=== PATIENT | female | born 1995 | race Caucasian/White ===

== ENCOUNTER 2016-08-27 11:36 | Emergency (ER) | payer MEDICAID ==
[~2016-08-27] VITALS: Ht 160 cm; Wt 50.0 kg
[2016-08-27] MEDS ORDERED: KETOROLAC 60MG/2ML VIAL IM ONE (12:00)
[2016-08-27] MEDS ORDERED: PREDNISONE 20MG TABLET PO ONE (12:15)
[2016-08-27 12:19] VITALS: BP 105/75
== END 2016-08-27 12:32 | disposition home or self-care (01) ==
LOC: ER 12:14
DX: R07.0 Pain in throat (principal)
CPT/HCPCS: 81025; 96372; 99283; J1885; J7512

== ENCOUNTER 2017-01-18 15:29 | Emergency (ER) | payer MEDICAID ==
[~2017-01-18] VITALS: Ht 154.9 cm; Wt 53.0 kg
[2017-01-18] MEDS ORDERED: ACETAMINOPHEN 650MG/20.3ML UDC PO ONE (16:15)
[2017-01-18 18:52] VITALS: BP 110/73
== END 2017-01-18 18:52 | disposition home or self-care (01) ==
LOC: ER 17:55
DX: J02.9 Acute pharyngitis, unspecified (principal)
CPT/HCPCS: 99283

== ENCOUNTER 2018-02-23 05:27 | Observation (INO) | payer MEDICAID ==
[~2018-02-23] VITALS: Ht 157.5 cm; Wt 54.9 kg
[2018-02-23] MEDS ORDERED: FOLI0.4T2 MT (06:03)
[2018-02-23] MEDS ORDERED: PREN1TAB78 MT (06:03)
[2018-02-23] MEDS ORDERED: LACTATED RINGERS 1,000 ML IV SCH (06:45)
[2018-02-23] MEDS ORDERED: ONDANSETRON HCL 4MG/2ML INJ IV ONE (06:45)
[2018-02-23 08:14] LABS: CHLORIDE 109 mEq/L (98-107)
[2018-02-23 08:18] LABS: HEMATOCRIT. 34.3 % (36.0-48.0); HEMOGLOBIN. 11.7 g/dL (12.0-16.0); MEAN CORPUSCULAR VOLUME 90.7 fL (81.0-99.0); MEAN PLATELET VOLUME 8.9 fl (7.4-10.4); PLATELET 272 x1000/uL (130-400); RED BLOOD CELL COUNT 3.78 mill/uL (4.2-5.4); RED CELL DISTRIBUTION WIDTH 13.3 % (11.6-14.6)
[2018-02-23 08:32] LABS: CLARITY URINE CLOUDY (CLEAR); COLOR URINE DARK YELLOW (YELLOW); KETONES URINE TRACE (NEGATIVE); LEUKOCYTE ESTERASE URINE 2+ (NEGATIVE); NITRITE URINE NEGATIVE (NEGATIVE); OCCULT BLOOD URINE NEGATIVE (NEGATIVE); PROTEIN URINE NEGATIVE (NEGATIVE); SPECIFIC GRAVITY URINE 1.023 (1.005-1.030); UROBILINOGEN URINE 0.2 E.U./dL (0.2-1.0)
[2018-02-23 09:06] LABS: PLATELET ESTIMATE NORMAL
== END 2018-02-23 09:40 | disposition home or self-care (01) ==
LOC: 8 EST LDRP 05:27
PROVIDERS: ADMIT Obstetrics & Gynecology; ATTEND Obstetrics & Gynecology
DX: O21.2 Late vomiting of pregnancy (principal); O26.892 Other specified pregnancy related conditions, second trimester; R19.7 Diarrhea, unspecified; R42 Dizziness and giddiness; R10.13 Epigastric pain; Z3A.26 26 weeks gestation of pregnancy
CPT/HCPCS: 36415; 80053; 81003; 85025; 87086; 96361; 96374; 99281; G0378; J2405; 96360; J7120

== ENCOUNTER 2018-05-07 03:24 | Emergency (ER) | payer MEDICAID ==
[~2018-05-07] VITALS: Ht 160 cm; Wt 63.0 kg
[~2018-05-07 03:24] MED LIST: FOLI0.4T2 MT; PREN1TAB78 MT
[2018-05-07 03:33] VITALS: BP 134/80
== END 2018-05-07 10:48 | disposition left against medical advice (07) ==
LOC: ER 03:24
DX: Z53.21 Procedure and treatment not carried out due to patient leaving prior to being seen by health care provider (principal)

== ENCOUNTER 2018-05-07 15:15 | Observation (INO) | payer MEDICAID ==
[~2018-05-07] VITALS: Ht 160 cm; Wt 63.5 kg
[2018-05-07 16:34] LABS: HEMATOCRIT 29.9 % (36.0-48.0); HEMOGLOBIN 10.2 g/dL (12.0-16.0); MEAN CORPUSCULAR VOLUME 88.3 fL (81.0-99.0); PLATELET 213 x1000/uL (130-400); RED BLOOD CELL COUNT 3.39 mill/uL (4.2-5.4); RED CELL DISTRIBUTION WIDTH 13.1 % (11.6-14.6)
[2018-05-07 16:37] LABS: CLARITY URINE CLOUDY (CLEAR); COLOR URINE YELLOW (YELLOW); KETONES URINE NEGATIVE (NEGATIVE); LEUKOCYTE ESTERASE URINE 3+ (NEGATIVE); NITRITE URINE NEGATIVE (NEGATIVE); OCCULT BLOOD URINE NEGATIVE (NEGATIVE); PROTEIN URINE NEGATIVE (NEGATIVE); SPECIFIC GRAVITY URINE 1.019 (1.005-1.030)
[2018-05-07 17:09] LABS: HEPATITIS B SURFACE ANTIGEN NEGATIVE
[2018-05-07 17:39] LABS: HEPATITIS A AB IGM NEGATIVE (NEGATIVE)
== END 2018-05-07 18:45 | disposition home or self-care (01) ==
LOC: 8 EST LDRP 15:15
PROVIDERS: ADMIT Specialist; ATTEND Specialist
DX: O26.893 Other specified pregnancy related conditions, third trimester (principal); L29.9 Pruritus, unspecified; Z3A.36 36 weeks gestation of pregnancy
CPT/HCPCS: 36415; 76815; 76818; 80076; 81003; 82239; 85027; 99281; G0378; 86705; 86709; 86803; 87340

== ENCOUNTER 2018-05-13 08:54 | Observation (INO) | payer MEDICAID ==
[~2018-05-13] VITALS: Ht 157.5 cm; Wt 82.6 kg
[2018-05-13] MEDS: URSODIOL 300MG CAPSULE PO SCH ×2 (14:22→22:27)
[2018-05-13 19:19] LABS: BASOPHILS % 0.4 % (0.0-2.0); EOSINOPHILS % 0.3 % (0.0-5.0); HEMATOCRIT. 32.8 % (36.0-48.0); LYMPHOCYTES % 32.7 % (20.0-50.0); MEAN CORPUSCULAR VOLUME 89.5 fL (81.0-99.0); MEAN PLATELET VOLUME 10.8 fl (7.4-10.4); MONOCYTES % 6.1 % (2.0-8.0); NEUTROPHILS % 60.5 % (40.0-76.0); PLATELET 200 x1000/uL (130-400); RED BLOOD CELL COUNT 3.66 mill/uL (4.2-5.4); RED CELL DISTRIBUTION WIDTH 13.7 % (11.6-14.6)
[2018-05-13] MEDS ORDERED: ACYC200C PO (19:20)
[2018-05-13 19:35] LABS: D-DIMER 1.2 mg/L FEU (<0.50); INR 0.9; PARTIAL THROMBOPLASTIN TIME 28.2 sec (23.4-31.0)
[2018-05-13 19:40] LABS: CHLORIDE 108 mEq/L (98-107)
[2018-05-13 19:42] LABS: PROTHROMBIN TIME 8.9 sec (9.1-11.1)
[2018-05-13 20:32] LABS: HEPATITIS B SURFACE ANTIGEN NEGATIVE
[2018-05-13 23:55] LABS: CLARITY URINE TURBID (CLEAR); COLOR URINE YELLOW (YELLOW); KETONES URINE NEGATIVE (NEGATIVE); LEUKOCYTE ESTERASE URINE 3+ (NEGATIVE); NITRITE URINE NEGATIVE (NEGATIVE); OCCULT BLOOD URINE TRACE (NEGATIVE); PH URINE 5.5 (4.5-8.0); PROTEIN URINE NEGATIVE (NEGATIVE)
[2018-05-14 00:36] LABS: *AMPHETAMINES SCREEN URINE NEGATIVE (NEGATIVE); *BARBITURATES SCREEN URINE NEGATIVE (NEGATIVE); *BENZODIAZEPINES SCREEN URINE NEGATIVE (NEGATIVE); *COCAINE SCREEN URINE NEGATIVE (NEGATIVE); METHADONE URINE SCREEN NEGATIVE (NEGATIVE)
[2018-05-14 00:37] LABS: CANNABINOID URINE SCREEN NEGATIVE (NEGATIVE); OPIATES URINE SCREEN NEGATIVE (NEGATIVE); PHENCYCLIDINE URINE SCREEN NEGATIVE (NEGATIVE)
[2018-05-14] MEDS ORDERED: FAMOTIDINE 20MG TABLET PO SCH (09:00)
== END 2018-05-14 04:20 | disposition left against medical advice (07) ==
LOC: 8 EST LDRP 08:54
PROVIDERS: ADMIT Obstetrics & Gynecology; ATTEND Obstetrics & Gynecology
DX: O99.613 Diseases of the digestive system complicating pregnancy, third trimester (principal); O23.43 Unspecified infection of urinary tract in pregnancy, third trimester; O98.513 Other viral diseases complicating pregnancy, third trimester; B00.9 Herpesviral infection, unspecified; Z3A.37 37 weeks gestation of pregnancy
CPT/HCPCS: 36415; 76705; 76805; 76815; 76818; 80053; 80305; 81003; 84550; 85025; 85379; 85384; 85610; 85730; 86592; 86703; 86762; 86850; 86900; 86901; 87086; 87340; 99281; G0378

== ENCOUNTER 2018-05-18 23:55 | Observation (INO) | payer MEDICAID ==
[~2018-05-18] VITALS: Ht 157.5 cm; Wt 63.5 kg
[~2018-05-18 23:55] MED LIST changes: +ACYC200C PO
[2018-05-19] MEDS ORDERED: ACETAMINOPHEN 500MG TABLET PO NR (00:45)
== END 2018-05-19 03:20 | disposition home or self-care (01) ==
LOC: 8 EST LDRP 23:55
PROVIDERS: ADMIT Obstetrics & Gynecology; ATTEND Obstetrics & Gynecology
DX: O62.9 Abnormality of forces of labor, unspecified (principal); Z3A.38 38 weeks gestation of pregnancy
CPT/HCPCS: G0378 ×2

== ENCOUNTER 2018-05-19 07:55 | Inpatient (IN) | payer MEDICAID ==
[~2018-05-19] VITALS: Ht 157.5 cm; Wt 63.5 kg
[2018-05-19] MEDS: LACTATED RINGERS 1,000 ML IV SCH ×2 (08:25→08:55)
[2018-05-19] MEDS ORDERED: CARBOPROST TROMETHAMINE 250 MCG/ML AMPUL IM PRN (08:30)
[2018-05-19] MEDS ORDERED: BUTORPHANOL TARTRATE 2 MG/ML VIAL IV PRN (08:30)
[2018-05-19] MEDS ORDERED: NALOXONE HCL 0.4 MG/ML 1ML VIAL IM PRN (08:30)
[2018-05-19] MEDS ORDERED: METHYLERGONOVINE MALEATE 0.2 MG/ML IM PRN (08:30)
[2018-05-19] MEDS ORDERED: LIDOCAINE HCL 1% 20ML VIAL (Pyxis) INJ INFIL SCH (08:30)
[2018-05-19] MEDS ORDERED: ROPIVACAINE HCL/PF EPIDURAL 200 ML EPI SCH (08:45)
[2018-05-19 08:54] LABS: INR 0.9; PARTIAL THROMBOPLASTIN TIME 26.3 sec (23.4-31.0); PROTHROMBIN TIME 9.2 sec (9.1-11.1)
[2018-05-19 09:03] LABS: HEMATOCRIT. 34.7 % (36.0-48.0); HEMOGLOBIN. 11.4 g/dL (12.0-16.0); MEAN CORPUSCULAR HEMOGLOBIN 29.7 pg (28.0-32.0); MEAN CORPUSCULAR VOLUME 90.4 fL (81.0-99.0); MEAN PLATELET VOLUME 11.3 fl (7.4-10.4); PLATELET 280 x1000/uL (130-400); RED BLOOD CELL COUNT 3.84 mill/uL (4.2-5.4); RED CELL DISTRIBUTION WIDTH 14.6 % (11.6-14.6)
[2018-05-19 09:49] LABS: D-DIMER 2.06 mg/L FEU (<0.50)
[2018-05-19 09:55] LABS: CLARITY URINE CLEAR (CLEAR); COLOR URINE DARK YELLOW (YELLOW); KETONES URINE TRACE (NEGATIVE); LEUKOCYTE ESTERASE URINE NEGATIVE (NEGATIVE); NITRITE URINE NEGATIVE (NEGATIVE); OCCULT BLOOD URINE 2+ (NEGATIVE); PH URINE 5.5 (4.5-8.0); PROTEIN URINE 2+ (NEGATIVE); SPECIFIC GRAVITY URINE 1.034 (1.005-1.030)
[2018-05-19] MEDS: MAGNESIUM 20 G PREMIX (L & D) 500 ML IV SCH ×2 (10:11→21:53)
[2018-05-19 10:19] LABS: *BARBITURATES SCREEN URINE NEGATIVE (NEGATIVE)
[2018-05-19 10:21] LABS: *COCAINE SCREEN URINE NEGATIVE (NEGATIVE); OPIATES URINE SCREEN NEGATIVE (NEGATIVE)
[2018-05-19 10:23] LABS: CANNABINOID URINE SCREEN NEGATIVE (NEGATIVE)
[2018-05-19 10:24] LABS: PHENCYCLIDINE URINE SCREEN NEGATIVE (NEGATIVE)
[2018-05-19 10:26] LABS: METHADONE URINE SCREEN NEGATIVE (NEGATIVE)
[2018-05-19 10:27] LABS: *AMPHETAMINES SCREEN URINE NEGATIVE (NEGATIVE); *BENZODIAZEPINES SCREEN URINE NEGATIVE (NEGATIVE)
[2018-05-19 11:12] LABS: PLATELET ESTIMATE NORMAL
[2018-05-19] MEDS: DEXT 5%/LR + PITOCIN 20UNITS/L 1,000 ML IV SCH ×2 (11:14→17:19)
[2018-05-19 12:19] LABS: HEPATITIS B SURFACE ANTIGEN NEGATIVE
[2018-05-19] MEDS ORDERED: DEXT 5%/LR + PITOCIN 20UNITS/L 1,000 ML IV SCH (16:37)
[2018-05-19] MEDS ORDERED: BENZOCAINE/LANOLIN/ALOE VERA SPRAY TOP PRN (16:45)
[2018-05-19] MEDS ORDERED: TETANUS, DIPHTHERIA, PERTUSSIS VAC/PF 0.5ML (>7YR OLD) IM ONE (16:45)
[2018-05-19] MEDS ORDERED: INFLUENZA VIRUS VACCINE(AFLURIA) 0.5ML SYR IM ONE (16:45)
[2018-05-19] MEDS ORDERED: ACETAMINOPHEN WITH CODEINE 300/30MG TABLET PO PRN (16:45)
[2018-05-19] MEDS ORDERED: IBUPROFEN 400MG TABLET PO PRN (16:45)
[2018-05-19] MEDS ORDERED: DIPHENHYDRAMINE 25MG CAPSULE PO PRN (16:45)
[2018-05-19] MEDS ORDERED: HEMORRHOIDAL SUPP PR PRN (16:45)
[2018-05-19] MEDS ORDERED: BISACODYL 10MG SUPP PR PRN (16:45)
[2018-05-19] MEDS ORDERED: GLYCERIN/WITCH HAZEL LEAF MEDICATED PAD TOP PRN (16:45)
[2018-05-19] MEDS ORDERED: LANOLIN OINT 0.25 GM TUBE TOP PRN (16:45)
[2018-05-19] MEDS: IBUPROFEN 800MG TABLET PO PRN (17:18)
[2018-05-19 20:21] LABS: CHLORIDE 109 mEq/L (98-107)
[2018-05-19 22:00] VITALS: BP 119/80
[2018-05-19 22:30] VITALS: BP 123/80
[2018-05-19 23:00] VITALS: BP 122/80
[2018-05-20] MEDS: DOCUSATE SODIUM 100MG CAPSULE PO SCH ×2 (00:42→22:27)
[2018-05-20 00:43] VITALS: BP 128/85
[2018-05-20] MEDS: IBUPROFEN 800MG TABLET PO PRN ×3 (00:43→18:20)
[2018-05-20] MEDS: DEXT 5%/LR + PITOCIN 20UNITS/L 1,000 ML IV SCH ×2 (00:46→12:10)
[2018-05-20 06:44] LABS: BASOPHILS % 0.1 % (0.0-2.0); HEMATOCRIT. 25.4 % (36.0-48.0); HEMOGLOBIN. 8.5 g/dL (12.0-16.0); LYMPHOCYTES % 10.5 % (20.0-50.0); MEAN CORPUSCULAR HEMOGLOBIN 30.3 pg (28.0-32.0); MEAN CORPUSCULAR VOLUME 90.6 fL (81.0-99.0); MEAN PLATELET VOLUME 10.9 fl (7.4-10.4); MONOCYTES % 5.3 % (2.0-8.0); NEUTROPHILS % 84.1 % (40.0-76.0); PLATELET 198 x1000/uL (130-400); RED CELL DISTRIBUTION WIDTH 14.9 % (11.6-14.6)
[2018-05-20 06:55] VITALS: BP 109/72
[2018-05-20 08:00] VITALS: BP 112/70
[2018-05-20] MEDS: FERROUS SULFATE 325MG TABLET PO SCH ×3 (08:21→18:18)
[2018-05-20] MEDS ORDERED: MEDROXYPROGESTERONE ACETATE 150MG/ML VIAL IM SCH (12:00)
[2018-05-20] MEDS: PRENATAL VIT/FE FUMARATE/FA TABLET PO SCH (12:09)
[2018-05-20 16:00] VITALS: BP 111/65
[2018-05-20 20:00] VITALS: BP 116/70
[2018-05-21] VITALS: BP 115/70
[2018-05-21 01:49] VITALS: BP 114/60
[2018-05-21] MEDS: IBUPROFEN 800MG TABLET PO PRN (01:49)
[2018-05-21 08:00] VITALS: BP 127/77
[2018-05-21] MEDS: PRENATAL VIT/FE FUMARATE/FA TABLET PO SCH (09:00)
[2018-05-21] MEDS: FERROUS SULFATE 325MG TABLET PO SCH (09:00)
== END 2018-05-21 11:40 | disposition home or self-care (01) | DRG 560 ==
LOC: OBSVTOIN 07:55 → 8 EST LDRP 07:55 → 8EST 17:04
PROVIDERS: ADMIT Specialist; ATTEND Specialist
PROC: 10E0XZZ Delivery of Products of Conception, External Approach (ICD-10-PCS; principal; 2018-05-19)
DX: O13.4 Gestational [pregnancy-induced] hypertension without significant proteinuria, complicating childbirth (principal); K81.9 Cholecystitis, unspecified; O77.0 Labor and delivery complicated by meconium in amniotic fluid; D64.9 Anemia, unspecified; O90.81 Anemia of the puerperium; O99.62 Diseases of the digestive system complicating childbirth; Z37.0 Single live birth; Z3A.38 38 weeks gestation of pregnancy
CPT/HCPCS: 36415; 80305; 83735; 85379; 85384; 86592; 86703; 86762; 86850; 86900; 87340; 99281; J1050; J2590; J2795; J3475; J7120; A4315

== ENCOUNTER 2018-05-31 21:45 | Emergency (ER) | payer MEDICAID ==
[~2018-05-31] VITALS: Ht 157.5 cm; Wt 55.0 kg
[~2018-05-31 21:45] MED LIST changes: -ACYC200C PO
[2018-05-31 22:40] VITALS: BP 102/69
== END 2018-05-31 22:15 | disposition left against medical advice (07) ==
LOC: ER 21:45
DX: Z53.21 Procedure and treatment not carried out due to patient leaving prior to being seen by health care provider (principal)

== ENCOUNTER 2022-05-24 13:34 | Emergency (ER) | payer MEDICAID ==
[~2022-05-24] VITALS: Ht 160 cm; Wt 74.0 kg
[~2022-05-24 13:34] MED LIST changes: -FOLI0.4T2 MT; +FOLI0.4T6 MT
[2022-05-24] MEDS ORDERED: KETOROLAC 30MG/ML VIAL IV STA (15:16)
[2022-05-24] MEDS ORDERED: SODIUM CHLORIDE 0.9% 1,000 ML IV ONE (15:30)
[2022-05-24] MEDS ORDERED: ONDANSETRON HCL 4MG/2ML INJ IV ONE (15:30)
[2022-05-24 15:36] LABS: CLARITY URINE TURBID (CLEAR); COLOR URINE DARK YELLOW (YELLOW); KETONES URINE TRACE (NEGATIVE); LEUKOCYTE ESTERASE URINE TRACE (NEGATIVE); NITRITE URINE NEGATIVE (NEGATIVE); OCCULT BLOOD URINE 1+ (NEGATIVE); PH URINE 5.5 (4.5-8.0); PROTEIN URINE 1+ (NEGATIVE); SPECIFIC GRAVITY URINE 1.025 (1.005-1.030)
[2022-05-24 15:37] LABS: BASOPHILS % 0.1 % (0.0-2.0); EOSINOPHILS % 1.9 % (0.0-5.0); HEMATOCRIT. 38.8 % (36.0-48.0); HEMOGLOBIN. 13.8 g/dL (12.0-16.0); LYMPHOCYTES % 28.8 % (20.0-50.0); MEAN CORPUSCULAR HEMOGLOBIN 30.4 pg (28.0-32.0); MEAN CORPUSCULAR VOLUME 85.6 fL (81.0-99.0); MEAN PLATELET VOLUME 8.4 fl (7.4-10.4); NEUTROPHILS % 56.2 % (40.0-76.0); PLATELET 255 x1000/uL (130-400); RED BLOOD CELL COUNT 4.54 mill/uL (4.2-5.4); RED CELL DISTRIBUTION WIDTH 12.7 % (11.6-14.6)
[2022-05-24 15:49] LABS: HCG SCREEN NEGATIVE
[2022-05-24 15:51] LABS: CHLORIDE 111 mEq/L (98-107)
[2022-05-24] MEDS ORDERED: POTASSIUM CHLORIDE 20MEQ TABLET SR PO ONE (17:15)
[2022-05-24 17:50] VITALS: BP 115/75
== END 2022-05-24 19:14 | disposition home or self-care (01) ==
LOC: ER 13:34
DX: R10.9 Unspecified abdominal pain (principal); E87.6 Hypokalemia; Z20.822 Contact with and (suspected) exposure to COVID-19
CPT/HCPCS: 36415; 71045; 74176; 80053; 81003; 83690; 84703; 85025; 87426; 96361; 96374; 96375; 99285; C9803; J1885; J2405; J7030; Z7610